=== PATIENT | female | born 1970 | race African-American/Black ===

== ENCOUNTER 2024-05-01 10:24 | Emergency (ER) | payer BC ==
[~2024-05-01] VITALS: Ht 167.6 cm; Wt 114.0 kg
[2024-05-01 10:36] VITALS: BP 178/99; TEMP 98.6
[2024-05-01 11:20] LABS: BASOPHILS % 0.4 % (0.0-2.0); EOSINOPHILS % 0.2 % (0.0-5.0); HEMATOCRIT. 39.1 % (36.0-48.0); HEMOGLOBIN. 12.8 g/dL (12.0-16.0); LYMPHOCYTES % 13.5 % (20.0-50.0); MEAN CORPUSCULAR HEMOGLOBIN 29.4 pg (28.0-32.0); MEAN CORPUSCULAR HGB CONC 32.8 g/dL (31.0-37.0); MEAN CORPUSCULAR VOLUME 89.5 fL (81.0-99.0); MEAN PLATELET VOLUME 10.3 fl (7.4-10.4); MONOCYTES % 10.3 % (2.0-8.0); NEUTROPHILS % 75.6 % (40.0-76.0); PLATELET 174 x1000/uL (130-400); RED BLOOD CELL COUNT 4.36 mill/uL (4.2-5.4); RED CELL DISTRIBUTION WIDTH 14.2 % (11.6-14.6); WHITE BLOOD COUNT 8.9 x1000/uL (4.5-11.0)
[2024-05-01 11:26] LABS: CHLORIDE 105 mEq/L (98-107); SODIUM 137 mEq/L (136-145)
[2024-05-01 11:27] LABS: CARBON DIOXIDE 27 mEq/L (21-32)
[2024-05-01 11:28] LABS: CALCIUM 9.1 mg/dL (8.7-10.4)
[2024-05-01 11:32] LABS: GLUCOSE 157 mg/dL (70-105); UREA NITROGEN BLOOD 8 mg/dL (9-23)
[2024-05-01 11:35] LABS: TROPONIN I HIGH SENSITIVITY 12 ng/L (3.0-34)
[2024-05-01] MEDS: IPRATROPIUM/ALBUTEROL 0.5-3(2.5)MG/3ML NEB HHN ONE (12:11)
[2024-05-01 12:12] VITALS: PULSE 80; RESP 18; O2SAT 97
[2024-05-01] MEDS: PREDNISONE 20MG TABLET PO ONE (12:14)
== END 2024-05-01 13:36 | disposition left against medical advice (07) ==
LOC: ER 10:43
DX: R07.9 Chest pain, unspecified (principal); I10 Essential (primary) hypertension; J45.909 Unspecified asthma, uncomplicated
CPT/HCPCS: 80048; 85025; 84484; 36415; 71045; 94640; 93005; 99285; J7512; Z7610 ×3